=== PATIENT | female | born 1995 | race Caucasian/White ===

== ENCOUNTER 2024-12-31 17:10 | Inpatient (IN) | payer OTHER ==
[2024-12-31 18:09] LABS: ABSOLUTE IMMATURE GRANULOCYTES 0.05 x10^3/uL (0.0-0.031); BASOPHILS # 0.01 x10^3/uL (0.01-0.08); EOSINOPHIL % 0.2 % (0.7-5.8); EOSINOPHILS # 0.02 x10^3/uL (0.04-0.36); MCHC 32.1 g/dl (32.2-35.5); MEAN CELL VOLUME 87.7 fl (79.4-94.8); MEAN PLT VOLUME 11.2 fl (9.4-12.3); MONOCYTE # 0.78 x10^3/uL (0.24-0.86); MONOCYTE % 9.4 % (4.7-12.5); RDW 15.1 % (12.1-16.5)
[2024-12-31 18:19] LABS: INR 0.92 (0.83-1.09); PROTHROMBIN TIME (PATIENT) 10.1 SEC (9.7-13.0)
[2024-12-31 18:21] LABS: ACTIVATED PTT 25.1 SECONDS (25.2-36.5)
[2024-12-31 18:25] VITALS: BMI 32.5
[2024-12-31 18:34] LABS: CO2 21.0 mmol/L (21-32); GLUCOSE,RANDOM 68.0 mg/dL (74-106)
[2024-12-31 18:37] LABS: CREATININE 0.8 mg/dL (0.55-1.3)
[2024-12-31] MEDS ORDERED: BUTORPHANOL TARTRATE 2 MG/ML VIAL ONE (23:14)
[2024-12-31] MEDS: PROMETHAZINE HCL 25 MG/1 ML VIAL IVPB ONE (23:20)
[2024-12-31] MEDS: BUTORPHANOL TARTRATE 1 MG/ML VIAL IVPUSH ONE (23:20)
[2025-01-01] MEDS: LACTATED RINGERS SOLUTION 1,000 ML/1,000 ML INFUS.BAG IV STA (01:14)
[2025-01-01] MEDS: LACTATED RINGERS SOLUTION 1,000 ML/1,000 ML INFUS.BAG IV SCH (01:14)
[2025-01-01] MEDS ORDERED: OXYTOCIN 30 UNITS in 0.9% NS 30 UNIT/500 ML INFUS.BAG IVPB ONE (03:01)
[2025-01-01] MEDS: OXYTOCIN 30 UNITS in 0.9% NS 30 UNIT/500 ML INFUS.BAG IVPB SCH (03:09)
[2025-01-01] MEDS ORDERED: NALOXONE HCL 0.4 MG/ML VIAL IVPUSH PRN (07:31)
[2025-01-01] MEDS: ELECTROLYTE-148 SOLN 1,000 ML IV ONE (07:45)
[2025-01-01] MEDS ORDERED: FENTANYL/BUPIVACAINE/NS/PF - PCEA - 50 ML DISP.SYRIN EP ONE ×2 (07:50→12:09)
[2025-01-01] MEDS: FENTANYL/BUPIVACAINE/NS/PF - PCEA - 50 ML DISP.SYRIN EP SCH (08:00)
[2025-01-01] MEDS: ELECTROLYTE-148 SOLN 1,000 ML IV SCH (09:31)
[2025-01-01] MEDS ORDERED: OXYTOCIN 20 UNITS in 0.9% NS 20 UNIT/1,000 ML INFUS.BAG IV ONE (15:09)
[2025-01-01] MEDS ORDERED: METHYLERGONOVINE MALEATE 0.2 MG/1 ML AMP IM PRN (17:09)
[2025-01-01] MEDS ORDERED: BENZOCAINE 20% 57 GM BOTTLE TP PRN (17:09)
[2025-01-01] MEDS ORDERED: BENZOCAINE 28 GM HEMORRHOIDAL OINTMENT TP PRN (17:09)
[2025-01-01] MEDS ORDERED: BISACODYL 10 MG SUPP.RECT RC PRN (17:09)
[2025-01-01] MEDS ORDERED: WITCH HAZEL 50% (TUCKS) 40 PAD/JAR PAD TP PRN (17:09)
[2025-01-01] MEDS ORDERED: IBUPROFEN 600 MG TABLET (FP) PO ONE (17:15)
[2025-01-01] MEDS: IBUPROFEN 600 MG TABLET (FP) PO PRN (17:22)
[2025-01-01] MEDS: OXYTOCIN 20 UNITS in 0.9% NS 20 UNIT/1,000 ML INFUS.BAG IV SCH (17:23)
[2025-01-01 22:03] VITALS: RESP 18
[2025-01-02 08:09] LABS: ABSOLUTE IMMATURE GRANULOCYTES 0.08 x10^3/uL (0.0-0.031); BASOPHILS # 0.03 x10^3/uL (0.01-0.08); EOSINOPHIL % 0.5 % (0.7-5.8); EOSINOPHILS # 0.08 x10^3/uL (0.04-0.36); MCHC 31.8 g/dl (32.2-35.5); MEAN CELL VOLUME 89.6 fl (79.4-94.8); MEAN PLT VOLUME 11.6 fl (9.4-12.3); MONOCYTE # 1.27 x10^3/uL (0.24-0.86); MONOCYTE % 7.8 % (4.7-12.5); RDW 15.3 % (12.1-16.5)
[2025-01-02] MEDS: PRENATAL VITAMINS W/ FOLIC ACID TABLET (FP) PO SCH (09:16)
[2025-01-02] MEDS: FERROUS SO4 325 MG TABLET (FP) PO SCH (09:16)
[2025-01-02] MEDS: SENNOSIDES/DOCUSATE COMBO (SENNA PLUS) TABLET (UD) PO PRN (20:27)
[2025-01-03] MEDS: ACETAMINOPHEN 325 MG TABLET (FP) PO PRN (09:14)
[2025-01-03 10:41] VITALS: BP 125/79; PULSE 92; TEMP 98.2
[2025-01-04 09:47] LABS: POC NITRAZINE POS
== END 2025-01-03 13:40 | disposition home or self-care (01) | DRG 560 ==
LOC: JLDR 17:10 → J3W 01-01 19:51
PROVIDERS: ADMIT Obstetrics & Gynecology; ATTEND Obstetrics & Gynecology
PROC: 10E0XZZ Delivery of Products of Conception, External Approach (ICD-10-PCS; principal; 2025-01-01)
PROC: 0W8NXZZ Division of Female Perineum, External Approach (ICD-10-PCS; 2025-01-01)
DX: O80 Encounter for full-term uncomplicated delivery (principal); Z3A.40 40 weeks gestation of pregnancy; Z37.0 Single live birth
CPT/HCPCS: 36415; 59409; 80048; 83986-QW; 85025; 85610; 85730; 86780; 86850; 86900; 86901